=== PATIENT | male | born 1980 | race Caucasian/White ===

== ENCOUNTER 2017-04-28 06:02 | Observation (INO) ==
--- NOTE | 2017-04-28 06:25 | Emergency Department Note ---
Disposition Clinical Impression: Chest pain Qualifiers: Chest pain type: unspecified Qualified Code(s): R07.9 - Chest pain, unspecified Disposition: Admitted As Inpatient Condition: Fair Referrals: Stella Nelson MD [Primary Care Provider] - Forms: ED Satisfaction Letter Time of Disposition: 08:22 Chest Pain HPI - General Chief Complaint: ED Chest Pain Stated Complaint: CHEST PAIN Time Seen by Provider: 04/28/17 06:07 Source: patient, EMS Limitations: no limitations Vital Signs Reviewed: Yes Nursing Notes Reviewed: Yes - History of Present Illness HPI Narrative: 36-year-old male arrives by EMS for evaluation of left-sided chest pain. The patient states that he awoke from sleep at 3:00 this morning with a "tightness in my chest". He states this tightness was made worsen with deep breathing. He states that he took 3 full strength aspirin without relief. When the pain continued, he and his decided to call EMS for transport to the hospital. EMS administered a total of 3 sublingual nitroglycerin tablets and round. He states that initially, he rated his chest tightness a 7 out of 10 on a 10 point scale. After the third nitroglycerin tablet, his pain is now a 1 out of 10. He denies any associated nausea, vomiting, or diaphoresis. He denies any fevers , cough, or recent upper respiratory infections. He denies any sputum or hemoptysis although states the pain is worse with deep inspiration. His pain is not reproducible with palpation. He denies any pain or swelling of the lower legs or calves. He states this pain did radiate approximately snf down his left upper arm. He states that all day yesterday afternoon, he experienced the sensation of palpitations however did not have any chest pain or pressure. He denies any known cardiac history but states a strong familial history. Pt complaint: chest pain Onset (ago): hour(s) (Awoke from sleep at 3:00 AM) Duration: other (Improved) Pain Location: left chest Severity: moderate Severity scale (1-10): 1 Quality: tightness Pain Radiation: LUE, back Improves with: nitroglycerin Associated symptoms: Reports: palpitations (Palpitations yesterday), other ( Pain with inspiration). Denies: nausea, vomiting, diaphoresis, dyspnea, syncope Treatments prior to arrival chest pain: aspirin, nitroglycerin - Related Data Home Medications Medication Instructions Recorded Confirmed Omeprazole [PriLOSEC] 40 mg PO DAILY 12/06/16 04/28/17 metFORMIN [Glucophage] 850 mg PO BIDWM 12/06/16 04/28/17 Venlafaxine XR (24 HR) [Effexor XR] 150 mg PO DAILY 04/28/17 04/28/17 Allergies Allergy/AdvReac Type Severity Reaction Status Date / Time No Known Allergies Allergy Verified 04/28/17 06:03 All systems ED: reviewed and negative except as stated. Constitutional: Denies: fever, chills, weakness, weight change Eyes: Denies: eye pain, eye discharge, vision change ENT ED: Denies: ear pain, throat pain, dental pain, hearing loss, epistaxis, congestion, dysphagia Cardiovascular: Reports: as per HPI, chest pain, palpitations. Denies: dyspnea on exertion, edema, syncope Respiratory: Reports: as per HPI, other (Pain with inspiration). Denies: cough , dyspnea, wheezes, hemoptysis, stridor Gastrointestinal: Denies: abdominal pain, nausea, vomiting, diarrhea, constipation, hematemesis, melena, hematochezia Genitourinary: Denies: urgency, dysuria, frequency, hematuria Musculoskeletal: Denies: back pain, neck pain, arthralgia, myalgia Integumentary: Denies: rash, abrasion, lesions Neurological: Denies: headache, weakness, numbness, paresthesias, confusion, abnormal gait, vertigo Psychiatric: Denies: anxiety, depression, suicidal thoughts, homicidal thoughts , auditory hallucinations, visual hallucinations Endocrine: Denies: fatigue Hematological/Lymphatic: Denies: easy bleeding, easy bruising Allergic/Immunologic: Denies: facial swelling, urticaria Chest Pain PMH - Past Medical History Medical history: Reports: diabetes, GERD, other Psychiatric history: Reports: anxiety, depression, other - Social History Smoking Status: Former smoker Alcohol use: Reports: occasionally Drug use: Reports: none Physical Exam - General Limitations: no limitations General appearance: alert, in no apparent distress - Head Head exam: atraumatic, normocephalic, normal inspection - Eye Eye exam: Present: normal appearance, PERRL, EOMI. Absent: nystagmus - ENT ENT exam: mucous membranes moist - Neck Neck exam: Present: normal inspection, full ROM, trachea midline - Chest Chest inspection: Present: normal inspection, symmetric chest wall rise - Respiratory Respiratory exam: Present: normal lung sounds bilaterally. Absent: respiratory distress, wheezes, stridor, accessory muscle use, prolonged expiratory phase - Cardiovascular Cardiovascular exam: Present: regular rate, normal rhythm, normal heart sounds - Abdominal Exam Abdominal exam: Present: soft, Non-Tender, normal bowel sounds - Extremities Exam Extremities exam: Present: normal inspection, full ROM. Absent: tenderness, pedal edema - Neurological Exam Neurological exam: Present: alert, oriented X3 - Psychiatric Psychiatric exam: Present: normal affect, normal mood - Skin Skin exam: Present: warm, dry, intact, normal color Course Course Narrative: I discussed this patient's case with Dr. Chavez. Dr. Chavez has had a face-to -face evaluation with patient and also agrees with admission to the hospitalist service for chest pain rule out. 0820: I spoke with Dr. Putnam the hospitalist service who has accepted the patient for admission to his care for further observation and treatment/rule out. Vital Signs Temperature 98.7 F 04/28/17 06:03 Pulse Rate 59 04/28/17 06:03 Respiratory Rate 16 04/28/17 06:03 Blood Pressure 168/94 04/28/17 06:03 O2 Sat by Pulse Oximetry 99 04/28/17 06:03 Temperature 98.7 F 04/28/17 06:03 Pulse Rate 81 04/28/17 07:12 Respiratory Rate 18 04/28/17 07:12 Blood Pressure 141/92 04/28/17 07:12 O2 Sat by Pulse Oximetry 98 04/28/17 07:12 Oxygen Delivery Oxygen Delivery Room Air Chest Pain - Medical Records Medical records reviewed: Yes I reviewed the patient's medical records. - Lab Data Lab results reviewed: Yes I reviewed the patient's lab results. Lab results narrative: Laboratory Last Values WBC 5.7 K/mcL (4.3-11.1) 04/28/17 06:59 RBC 4.82 M/mcL (4.19-5.50) 04/28/17 06:59 Hgb 14.3 g/dL (12.9-16.9) 04/28/17 06:59 Hct 41.5 % (37.5-50.1) 04/28/17 06:59 MCV 86.1 fL (83.0-100.0) 04/28/17 06:59 MCH 29.7 pg (28.0-33.3) 04/28/17 06:59 MCHC 34.5 g/dL (31.6-35.5) 04/28/17 06:59 RDW 12.9 % (11.5-14.5) 04/28/17 06:59 Plt Count 227 K/mcL (140-400) 04/28/17 06:59 MPV 10.3 fL (9.4-12.4) 04/28/17 06:59 Immature Gran % 0.2 % (0-4) 04/28/17 06:59 Seg Neutrophils % 59.4 % 04/28/17 06:59 Lymphocytes % 28.3 % 04/28/17 06:59 Monocytes % 8.0 % 04/28/17 06:59 Eosinophils % 3.4 % 04/28/17 06:59 Basophils % 0.7 % 04/28/17 06:59 Neutrophils # 3.4 K/mcL (1.6-8.9) 04/28/17 06:59 Lymphocytes # 1.6 K/mcL (0.6-4.6) 04/28/17 06:59 Monocytes # 0.5 K/mcL (0.0-1.3) 04/28/17 06:59 Eosinophils # 0.2 K/mcL (0.0-0.6) 04/28/17 06:59 Basophils # 0.0 K/mcL (0.0-0.2) 04/28/17 06:59 Immature Plt Fraction 3.5 % (1.1-6.1) 04/28/17 06:59 PT 10.9 Seconds (9.4-12.1) 04/28/17 06:59 INR 1.0 04/28/17 06:59 APTT 27.5 Seconds (26.0-36.0) 04/28/17 06:59 D-Dimer 316 ng/mLFEU (0-500) 04/28/17 06:59 Sodium 139 mEq/L (136-145) 04/28/17 06:59 Potassium 4.0 mEq/L (3.5-4.5) 04/28/17 06:59 Chloride 104 mEq/L (98-109) 04/28/17 06:59 Carbon Dioxide 26 mEq/L (19-29) 04/28/17 06:59 BUN 14 mg/dL (8-26) 04/28/17 06:59 Creatinine 0.82 mg/dL (0.72-1.25) 04/28/17 06:59 Est GFR ( Amer) > 60 (> 60) 04/28/17 06:59 Est GFR (Non-Af Amer) > 60 (> 60) 04/28/17 06:59 BUN/Creatinine Ratio 17 (6-26) 04/28/17 06:59 Glucose 166 mg/dL (70-99) H 04/28/17 06:59 Calculated Osmolality 292 (280-300) 04/28/17 06:59 Calcium 8.8 mg/dL (8.6-10.8) 04/28/17 06:59 Magnesium 1.6 mg/dL (1.6-2.6) 04/28/17 06:59 Troponin I 0.00 ng/mL (0-0.03) 04/28/17 06:59 B-Natriuretic Peptide 36 pg/mL (0-100) 04/28/17 06:59 Urine Color Yellow (Yellow) 04/28/17 06:46 Urine Clarity Clear (Clear) 04/28/17 06:46 Urine pH 6.0 pH Units (5.0-8.0) 04/28/17 06:46 Ur Specific [place] 1.020 (1.010-1.025) 04/28/17 06:46 Urine Protein Negative mg/dL (Neg-Trace) 04/28/17 06:46 Urine Glucose (UA) Normal mg/dL (Normal) 04/28/17 06:46 Urine Ketones Negative mg/dL (Negative) 04/28/17 06:46 Urine Blood Negative (Negative) 04/28/17 06:46 Urine Nitrite Negative (Negative) 04/28/17 06:46 Urine Bilirubin Negative (Negative) 04/28/17 06:46 Urine Urobilinogen Normal mg/dL (Normal) 04/28/17 06:46 Ur Leukocyte Esterase Negative (Negative) 04/28/17 06:46 Ur Culture Indicated? NO (NO) 04/28/17 06:46 Result diagrams: 04/28/17 06:59 04/28/17 06:59 Lab Results 04/28/17 04/28/17 04/28/17 Range/Units 06:46 06:59 06:59 WBC (4.3-11.1) K/mcL RBC (4.19-5.50) M/mcL Hgb (12.9-16.9) g/dL Hct (37.5-50.1) % MCV (83.0-100.0) fL MCH (28.0-33.3) pg MCHC (31.6-35.5) g/dL RDW (11.5-14.5) % Plt Count (140-400) K/mcL MPV (9.4-12.4) fL Immature Gran % (0-4) % Seg Neutrophils % % Lymphocytes % % Monocytes % % Eosinophils % % Basophils % % Neutrophils # (1.6-8.9) K/mcL Lymphocytes # (0.6-4.6) K/mcL Monocytes # (0.0-1.3) K/mcL Eosinophils # (0.0-0.6) K/mcL Basophils # (0.0-0.2) K/mcL Immature Plt Fraction (1.1-6.1) % PT 10.9 (9.4-12.1) Seconds INR 1.0 APTT 27.5 (26.0-36.0) Seconds D-Dimer 316 (0-500) ng/mLFEU Sodium (136-145) mEq/L Potassium (3.5-4.5) mEq/L Chloride (98-109) mEq/L Carbon Dioxide (19-29) mEq/L BUN (8-26) mg/dL Creatinine (0.72-1.25) mg/dL Est GFR ( Amer) (> 60) Est GFR (Non-Af Amer) (> 60) BUN/Creatinine Ratio (6-26) Glucose (70-99) mg/dL Calculated Osmolality (280-300) Calcium (8.6-10.8) mg/dL Magnesium (1.6-2.6) mg/dL Troponin I (0-0.03) ng/mL B-Natriuretic Peptide 36 (0-100) pg/mL Urine Color Yellow (Yellow) Urine Clarity Clear (Clear) Urine pH 6.0 (5.0-8.0) pH Units Ur Specific [place] 1.020 (1.010-1.025) Urine Protein Negative (Neg-Trace) mg/dL Urine Glucose (UA) Normal (Normal) mg/dL Urine Ketones Negative (Negative) mg/dL Urine Blood Negative (Negative) Urine Nitrite Negative (Negative) Urine Bilirubin Negative (Negative) Urine Urobilinogen Normal (Normal) mg/dL Ur Leukocyte Esterase Negative (Negative) Ur Culture Indicated? NO (NO) 04/28/17 04/28/17 04/28/17 Range/Units 06:59 06:59 06:59 WBC 5.7 (4.3-11.1) K/mcL RBC 4.82 (4.19-5.50) M/mcL Hgb 14.3 (12.9-16.9) g/dL Hct 41.5 (37.5-50.1) % MCV 86.1 (83.0-100.0) fL MCH 29.7 (28.0-33.3) pg MCHC 34.5 (31.6-35.5) g/dL RDW 12.9 (11.5-14.5) % Plt Count 227 (140-400) K/mcL MPV 10.3 (9.4-12.4) fL Immature Gran % 0.2 (0-4) % Seg Neutrophils % 59.4 % Lymphocytes % 28.3 % Monocytes % 8.0 % Eosinophils % 3.4 % Basophils % 0.7 % Neutrophils # 3.4 (1.6-8.9) K/mcL Lymphocytes # 1.6 (0.6-4.6) K/mcL Monocytes # 0.5 (0.0-1.3) K/mcL Eosinophils # 0.2 (0.0-0.6) K/mcL Basophils # 0.0 (0.0-0.2) K/mcL Immature Plt Fraction 3.5 (1.1-6.1) % PT (9.4-12.1) Seconds INR APTT (26.0-36.0) Seconds D-Dimer (0-500) ng/mLFEU Sodium 139 (136-145) mEq/L Potassium 4.0 (3.5-4.5) mEq/L Chloride 104 (98-109) mEq/L Carbon Dioxide 26 (19-29) mEq/L BUN 14 (8-26) mg/dL Creatinine 0.82 (0.72-1.25) mg/dL Est GFR ( Amer) > 60 (> 60) Est GFR (Non-Af Amer) > 60 (> 60) BUN/Creatinine Ratio 17 (6-26) Glucose 166 H (70-99) mg/dL Calculated Osmolality 292 (280-300) Calcium 8.8 (8.6-10.8) mg/dL Magnesium 1.6 (1.6-2.6) mg/dL Troponin I 0.00 (0-0.03) ng/mL B-Natriuretic Peptide (0-100) pg/mL Urine Color (Yellow) Urine Clarity (Clear) Urine pH (5.0-8.0) pH Units Ur Specific [place] (1.010-1.025) Urine Protein (Neg-Trace) mg/dL Urine Glucose (UA) (Normal) mg/dL Urine Ketones (Negative) mg/dL Urine Blood (Negative) Urine Nitrite (Negative) Urine Bilirubin (Negative) Urine Urobilinogen (Normal) mg/dL Ur Leukocyte Esterase (Negative) Ur Culture Indicated? (NO) - Radiology Data Radiology results reviewed: Yes I reviewed the patient's radiology results. Chest X-Ray 04/28/17 06:20 IMPRESSION: No acute findings. D/ / Kristie Jackson MD / Kristie Jackson MD Interpreting Provider: Kristie Jackson MD - EKG Data EKG attestation: Yes I reviewed and interpreted this EKG. EKG results narrative: EKG reviewed by Dr. Stubbs as well. EKG shows a sinus rhythm with occasional ventricular premature complexes at a rate of 79 beats per minute. WA interval 162, QRS duration 93, QT/QTc interval 371/406. No STEMI. No significant changes when compared to an EKG dated 02/24/13. Heart Score - Score History: Moderately Suspicious EKG: Non Specific repolarisation Disturbance Age: Less than 45 Risk Factors: 1-2 risk factors Troponin: Less than normal limit HEART Score Total: 3 Attestation Statement - Attestation Attestation: Lizbeth, Kalen Chavez DO have provided [id number] time during the care of this patient. Detailed review the presentation, symptoms, medical history were discussed and reviewed with the mid-level provider Carlito Benavides PA-C/[place]. Medical intervention labs and imaging studies were reviewed in detail. See full documentation of physical exam and course of care in the mid-level provider's note. I agree with the determined course of care, medical intervention and disposition put forth by the mid-level provider. See below documentation for changes or alterations in documentation. 36-year-old male presents to emergency room with approximately 4 hours worth of substernal pressure and chest tightness. He has no specific cardiac history in the past. Patient has concerning family history with the mother and father with early cardiac disease as well as myocardial infarction. Patient does have diabetes and hypertension and is morbidly obese. Initial presentation about 3 AM patient had chest heaviness and tightness of his definitive findings of her had before. He does have a history of anxiety. Patient said that upon waking he had the chest pressure and tightness on the left side of his chest. He felt like he was difficult to take deep breaths. Patient took immediately for baby aspirin. He called the squad because symptoms did not get better. Patient then was provided with 3 tablets of nitroglycerin in transit. Initial tablet helped with some of the symptoms and then each tablet progressively after took away the symptoms. On arrival here to the emergency room patient does not have any anginal symptoms at this point. He does have concern for anginal colon. Initial EKG and labs are unremarkable except for inverted T-wave in lead 3 with no specific signs of ST segment elevation. Morphology is otherwise unremarkable. Patient is resting comfortably in the bed at this time. Because of the family history as well as the patient's risk factors she will be admitted for serial troponins a possible cardiac evaluation. Otherwise patient is resting comfortably in the bed of this time. See detailed documentation of physical exam, medical evaluation medical intervention, medical decision-making and disposition as a physician's note
[2017-04-28 06:55] LABS: Bilirubin,Urine Negative (Negative); Blood,Urine Negative (Negative); Clarity,Urine Clear (Clear); Color,Urine Yellow (Yellow); Glucose,Urine (UA) Normal (Normal); Ketones,Urine Negative (Negative); Leukocyte Esterase,Urine Negative (Negative); Nitrite,Urine Negative (Negative); Protein,Urine Negative (Neg-Trace); Urobilinogen,Urine Normal (Normal)
[2017-04-28 07:08] LABS: Basophils % 0.7 %; Eosinophils # 0.2 K/mcL (0.0-0.6); Eosinophils % 3.4 %; Hematocrit 41.5 % (37.5-50.1); Hemoglobin 14.3 g/dL (12.9-16.9); Immature Granulocytes % 0.2 % (0-4); Immature Platelets 3.5 % (1.1-6.1); Lymphocytes # 1.6 K/mcL (0.6-4.6); Lymphocytes % 28.3 %; Mean Corpuscular HGB Conc 34.5 g/dL (31.6-35.5); Mean Corpuscular Hemoglobin 29.7 pg (28.0-33.3); Mean Corpuscular Volume 86.1 fL (83.0-100.0); Mean Platelet Volume 10.3 fL (9.4-12.4); Monocytes # 0.5 K/mcL (0.0-1.3); Neutrophils # 3.4 K/mcL (1.6-8.9); Platelet Count 227 K/mcL (140-400); Red Blood Count 4.82 M/mcL (4.19-5.50); Red Cell Distribution Width 12.9 % (11.5-14.5); Segmented Neutrophils % 59.4 %
[2017-04-28 07:12] LABS: Prothrombin Time 10.9 Seconds (9.4-12.1)
[2017-04-28 07:15] LABS: Activated Partial Thrombo Time 27.5 Seconds (26.0-36.0)
[2017-04-28 07:19] LABS: BUN/Creatinine Ratio 17 (6-26); Blood Urea Nitrogen 14 mg/dL (8-26); Calcium 8.8 mg/dL (8.6-10.8); Carbon Dioxide 26 mEq/L (19-29); Chloride 104 mEq/L (98-109); Glucose 166 mg/dL (70-99); Magnesium 1.6 mg/dL (1.6-2.6); Osmolality,Calculated 292 (280-300); Sodium 139 mEq/L (136-145); eGFR For African Americans > 60 (> 60); eGFR For Non-African Americans > 60 (> 60)
[2017-04-28] MEDS ORDERED: Naloxone 0.4 MG/ML INJ IVP PRN (08:46)
[2017-04-28] MEDS ORDERED: *HR* Morphine 2 MG/ML SYRINGE IVP PRN (09:02)
[2017-04-28] MEDS ORDERED: Nitroglycerin 0.4 MG TAB.SUBL SL PRN (09:10)
[2017-04-28] MEDS ORDERED: D5% in Water 1,000 ML IVC PRN (09:11)
[2017-04-28] MEDS ORDERED: *HR* Dextrose 50 % in Water (Syg) 50 ML SYRINGE IVP PRN (09:11)
[2017-04-28] MEDS ORDERED: Dextrose Gel 15 GM PO PRN ×2 (09:11)
--- NOTE | 2017-04-28 09:20 | Internal Med History&Physical ---
Date of Encounter: 04/28/17 Time of Encounter: 09:14 Assessment and Plan (1) Chest pain Current visit: Yes Status: Acute Chest pain: 36/male Admitted with anginal pain: Precordial region, radiating to the left arm, relieved by nitroglycerin. Background history of diabetes. Borderline obesity. At the time of examination patient is chest pain-free Plan: -Admitted as an observation. Chest pain rule out ACS protocol. -Aspirin 81/Lipitor 40/metoprolol on hold for possible stress test. -Echocardiogram. -Pharmacological stress test. -If stress test is positive then consult cardiology for further evaluation. -The chest pain continues then consider nitroglycerin -I have seen this patient in the emergency room at bed 7 and patient's family including his parents and son at the bedside. - I have discussed the plan with the patient's family member and at the end of the conversation they do not have any questions, concerns, update or recommendations. Qualifiers: Chest pain type: unspecified Qualified Code(s): R07.9 - Chest pain, unspecified (2) Diabetes mellitus Current visit: Yes Status: Acute Patient is known to have her type 2 diabetes mellitus. Patient is presently on metformin. Metformin is on hold. Patient will be placed on subcutaneous insulin as per protocol. Qualifiers: Diabetes mellitus type: type 2 Diabetes mellitus complication status: with unspecified complications Diabetes mellitus [employer] insulin use: unspecified [employer] insulin use status Qualified Code(s): E11.8 - Type 2 diabetes mellitus with unspecified complications (3) DVT prophylaxis Current visit: Yes Status: Acute SCD Medical decision making: This patient has a moderate was risk of worsening in spite of being on appropriate medication due to the underlying comorbid conditions. Internal Medicine - H&P: HPI Chief complaint: Chest pain Admitted From: Emergency Dept Plans for Post Hospital Care: Home History of present illness: PCP: Dr. Liana Johnson Background medical history: Type 2 diabetes on metformin, depression, borderline obesity. History of present illness: Patient was complaining of chest pain since last night around 10 PM. The patient was left precordial region, nonradiating, localized, rest and with activity, associated with palpitation and flutter-like sensation, radiating to the left arm, relieved by rest and nitroglycerin. Patient was woke up with the chest pain and the pain was ongoing for more than 30 minutes, this is the reason why he came to the hospital. Patient denies abdominal pain, nausea, vomiting, dizziness or diarrhea. Workup in the emergency room: Patient was evaluated in the emergency room. Basic labs were drawn. Chest x-ray was done which was negative for any acute changes. EKG was done which showed T-wave inversion in lead 3. Troponins were negative. Reason for admission: Chest pain rule out ACS. Heart score: 4 Family history: Significant for coronary artery disease and early MT on both side of the parents. Past Med Surg Social Fam HX - Past Medical History Medical history: diabetes, GERD, other Psychiatric history: anxiety, depression, other - Social History Smoking Status: Former smoker Smokeless Tobacco Status: No Alcohol use: occasionally Drug use: none Internal Medicine - H&P: Meds Omeprazole [PriLOSEC] 40 mg PO DAILY 12/06/16 [History] metFORMIN [Glucophage] 850 mg PO BIDWM 12/06/16 [History] Venlafaxine XR (24 HR) [Effexor XR] 150 mg PO DAILY 04/28/17 [History] 3 Allergy/AdvReac Type Severity Reaction Status Date / Time No Known Allergies Allergy Verified 04/28/17 06:03 All Systems PM: A 10-system review of systems was performed and is negative for pertinent findings except as documented above in the HPI. - Constitutional Constitutional: no chills, no fever(s), no night sweats - EENT Eyes: no change in vision, no discharge, no pain, no photophobia Ears: no ear discharge, no ear pain, no tinnitus Nose, mouth and throat: no dysphagia, no nasal discharge, no neck pain, no sore throat - Cardiovascular Cardiovascular ROS IM: chest pain, diaphoresis, dyspnea on exertion, palpitations, no dyspnea, no lightheadedness, no syncope - Respiratory Respiratory: no cough, no dyspnea, no wheezing, no excessive phlegm production - Gastrointestinal Gastrointestinal: no abdominal pain, no diarrhea, no hematemesis, no hematochezia, no melena, no nausea, no vomiting - Musculoskeletal Musculoskeletal ROS IM: no numbness, no tingling - Integumentary Integumentary IM: no rash, no unusual bruising - Neurological Neurological ROS: no confusion, no convulsions, no focal weakness, no numbness, no tingling, no tremor(s) - Hematologic/Lymphatic Hematologic/Lymphatic: no easy bruising - Constitutional Vitals: Temp Pulse Resp BP Pulse Ox 98.7 F 81 18 141/92 98 04/28/17 06:03 04/28/17 07:12 04/28/17 07:12 04/28/17 07:12 04/28/17 07:12 General appearance: Present: pleasant, no acute distress, answers questions appropriately - Head Head exam: Present: atraumatic, normocephalic - Eye Eye exam: Present: PERRL, conjuntiva pink, sclera anicteric Pupils: Present: PERRL - Neck Neck exam general surgery: Present: supple, trachea midline. Absent: lymphadenopathy - Respiratory Respiratory exam: Present: CTAB. Absent: accessory muscle use, rales, rhonchi, wheezes - Cardiovascular Cardiovascular exam: Present: RRR, +S1, +S2. Absent: diastolic murmur, gallop, rubs, systolic murmur - GI/Abdominal GI/Abdominal exam: Present: normal bowel sounds, soft, no peritoneal signs. Absent: distended, tenderness - Extremities Exam Extremities exam: Present: warm, radial pulses palpable and symmetrical. Absent : calf tenderness, cyanotic, pedal edema - Neurological Exam Neurological exam: Present: CN II-XII intact, oriented X3, no focal deficits. Absent: pronater drift, facial droop, speech deficit - Skin Skin exam: Present: dry, intact Internal Med - H&P Results - Labs CBC & Chem 7: 04/28/17 06:59 04/28/17 06:59
[2017-04-28 09:41] LABS: Amphetamine Screen,Urine Negative ng/mL (Cutoff=1000); Barbiturate Screen,Urine Negative ng/mL (Cutoff=200); Benzodiazepines Screen,Urine Negative ng/mL (Cutoff=200); Cannabinoid Screen,Urine Negative ng/mL (Cutoff = 50); Cocaine Screen,Urine Negative ng/mL (Cutoff= 300); Opiate Screen,Urine Negative ng/mL (Cutoff=300); Phencyclidine Screen,Urine Negative ng/mL (Cutoff=25)
[2017-04-28 09:50] LABS: Hemoglobin A1C 6.7 %
[2017-04-28] MEDS: Insulin LISPRO 300 UNITS/3 ML VIAL SQ SCH ×2 (12:30→16:48)
[2017-04-28] MEDS: Aspirin Enteric Coated 81 MG Tablet PO SCH (14:00)
[2017-04-29 01:08] LABS: Basophils % 0.6 %; Eosinophils # 0.2 K/mcL (0.0-0.6); Eosinophils % 3.4 %; Hematocrit 41.4 % (37.5-50.1); Hemoglobin 14.3 g/dL (12.9-16.9); Immature Granulocytes % 0.4 % (0-4); Lymphocytes # 2.4 K/mcL (0.6-4.6); Lymphocytes % 36.2 %; Mean Corpuscular HGB Conc 34.5 g/dL (31.6-35.5); Mean Corpuscular Hemoglobin 29.7 pg (28.0-33.3); Mean Corpuscular Volume 85.9 fL (83.0-100.0); Mean Platelet Volume 10.7 fL (9.4-12.4); Monocytes # 0.5 K/mcL (0.0-1.3); Monocytes % 7.9 %; Neutrophils # 3.5 K/mcL (1.6-8.9); Platelet Count 241 K/mcL (140-400); Red Blood Count 4.82 M/mcL (4.19-5.50); Red Cell Distribution Width 12.8 % (11.5-14.5); Segmented Neutrophils % 51.5 %
[2017-04-29 01:17] LABS: Prothrombin Time 10.6 Seconds (9.4-12.1)
[2017-04-29 01:29] LABS: Alanine Aminotransferase 61 Units/L (0-55); Albumin 3.4 g/dL (3.5-5.0); Albumin/Globulin Ratio 1.1 (1.1-2.2); Alkaline Phosphatase 49 Units/L (38-126); Aspartate Amino Transferase 30 Units/L (5-34); BUN/Creatinine Ratio 17 (6-26); Bilirubin,Total 0.2 mg/dL (0.2-1.2); Blood Urea Nitrogen 15 mg/dL (8-26); Calcium 8.7 mg/dL (8.6-10.8); Carbon Dioxide 27 mEq/L (19-29); Chloride 103 mEq/L (98-109); Chol/HDL Ratio 5.5 (0-4.9); Cholesterol 171 mg/dL (< 200); Globulin 3.2 g/dL (2.4-3.5); Glucose 202 mg/dL (70-99); HDL Cholesterol 31 mg/dL (40-59); LDL Cholesterol,Calculated 73 mg/dL (0-99); Magnesium 1.9 mg/dL (1.6-2.6); Osmolality,Calculated 291 (280-300); Phosphorous 3.1 mg/dL (2.3-4.7); Potassium 3.5 mEq/L (3.5-4.5); Sodium 137 mEq/L (136-145); Total Protein 6.6 g/dL (6.0-8.3); Triglycerides 336 mg/dL (< 150); eGFR For African Americans > 60 (> 60); eGFR For Non-African Americans > 60 (> 60)
[2017-04-29] MEDS ORDERED: Regadenoson 0.4 MG/5 ML SYRINGE IVP ONE (06:09)
[2017-04-29] MEDS ORDERED: Venlafaxine XR (24 HR) 150 MG CAP.ER.24H PO SCH (09:00)
[2017-04-29] MEDS ORDERED: Pantoprazole 40 MG VIAL IVP SCH (09:00)
[2017-04-29] MEDS: Aspirin Enteric Coated 81 MG Tablet PO SCH (09:55)
[2017-04-29] MEDS: Insulin LISPRO 300 UNITS/3 ML VIAL SQ SCH ×3 (09:56→17:21)
[2017-04-29] MEDS ORDERED: Acetaminophen 325 MG TABLET PO ONE (10:11)
[2017-04-29 15:52] VITALS: BP 120/68
--- NOTE | 2017-04-29 16:24 | Electrocardiograph Report ---
[address] [address] Test Date: 2017-04-28 Pat Name: Leo Villalba Department: 103 Room: 3B46 Gender: M Wet Roaster: : 1980 Requested By: Carlito Benavides Order Number: [id number] Reading MD: Manjit Rudd MD Measurements Intervals [place] Rate: 79 P: 16 LA: 162 QRS: -10 QRSD: 93 T: -7 QT: 371 QTc: 406 Interpretive Statements SINUS RHYTHM WITH OCCASIONAL VENTRICULAR PREMATURE COMPLEXES MINIMAL VOLTAGE CRITERIA FOR LVH, CONSIDER NORMAL VARIANT Electronically Signed On 04-29-2017 16:22:33 EST by Manjit Rudd MD
--- NOTE | 2017-04-29 17:09 | Discharge Summary ---
Date of Encounter: 04/29/17 Time of Encounter: 10:15 - Discharge Diagnosis (1) Chest pain Priority: Primary Status: Acute Comments: Pt reports to the ED with left chest pain since night prior to admission at about 2200. He was left chest, nonradiating, localized. He reported the dictation is fluttering. Pain was relieved by nitroglycerin in the emergency department. He has not had anything since. Patient states he came to the emergency department due to the fact that the pain lasted longer than 30 minutes. He states that he has a lot of anxiety recently and feels that the chest pain is related to anxiety. It is not reproducible with palpation, movement, or deep inspiration. Stress test was negative with a gated EF of > 70%, echo with LVEF 65%, normal LV DD, no significant valvular dysfunction. EKG NSR with occasional PVCs, rate 79, ND 162, QRS 93, QTc 406. Pain most likely is related to anxiety, no indication that it is cardiac in nature. We discussed lifestyle modifications related to diet and cholesterol control, hypertension control. Pt verbalized understanding. Qualifiers: Chest pain type: unspecified Qualified Code(s): R07.9 - Chest pain, unspecified (2) Hyperlipidemia Priority: Secondary Status: Acute Comments: Pt with new diagnosis of hyperlipidemia, will continue statin that has been started in the ED. Triglycerides 336, suggested fish oil. Qualifiers: Hyperlipidemia type: unspecified Qualified Code(s): E78.5 - Hyperlipidemia , unspecified (3) Diabetes mellitus Priority: Secondary Status: Acute Comments: Hbg 6.7. Continue medications, diet, and accucheck routine at home. 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 (5) Obesity (BMI 30-39.9) Priority: Secondary Status: Chronic Comments: Chronic. Discussed lifestyle and diet modifications. - Discharge Medications Prescriptions: Atorvastatin Calcium [Lipitor] 20 mg PO DAILY #30 tablet [place]-3/Dha/Epa/Fish Oil [[place]-3 EC Softgel] 1 each PO DAILY #30 capsule.dr Rivero Medications: Omeprazole [PriLOSEC] 40 mg PO DAILY 12/06/16 [History] metFORMIN [Glucophage] 850 mg PO BIDWM 12/06/16 [History] Venlafaxine XR (24 HR) [Effexor Xr] 150 mg PO DAILY 04/28/17 [History] Aspirin Enteric Coated [Aspirin EC] 81 mg PO DAILY tablet. 04/29/17 [Rx] Atorvastatin Calcium [Lipitor] 20 mg PO DAILY #30 tablet 04/29/17 [Rx] [place]-3/Dha/Epa/Fish Oil [[place]-3 EC Softgel] 1 each PO DAILY #30 capsule. 02/05 [Rx] Allergies/Adverse Reactions: 3 Allergy/AdvReac Type Severity Reaction Status Date / Time No Known Allergies Allergy Verified 04/28/17 06:03 Procedures/tests Complete & Pending: Procedures Performed prior 72 hours Category Date Time Status NM sunny perf SPECT multi [NM] Routine Exams 04/28/17 09:09 Taken EV echocardiogram Routine Y 04/28/17 09:08 Completed SP pharm nuclear stress Routine Y 04/29/17 07:30 Completed Date of admission: 04/28/17 08:24 Primary care physician: Stella Nelson Discharging clinician: Jaye Shah Anticipated date of discharge: 04/29/17 - Patient Status Disposition: Home, Self-Care Condition: Good Functional capacity at discharge: independent ambulation Overall status at discharge: patient is back to baseline - Discharge Instructions Follow Up With: Stella Nelson MD [Primary Care Provider] - Additional Instructions: Follow up with PCP in the next 7-10 days for a follow up visit. Return to the ER as needed for any other problems or concerns or if your symptoms return or worsen. Take your medications as directed. Return to your normal activities and diet as tolerated. - Diet and Activity Activity: resume usual activities as tolerated Diet: diabetic diet, low fat, low cholesterol Interval History: Please see assessment and plan for hospital course. Hospital course: Mr. Villalba is a 36 year old male - Time Spent with Patient Total time spent providing and/or coordinating discharge services: Less than 30 minutes - Constitutional Vitals: Temp Pulse Resp BP Pulse Ox 98.3 F 96 16 120/68 98 04/29/17 15:51 04/29/17 15:51 04/29/17 15:51 04/29/17 15:51 04/29/17 15:51 General appearance: Present: pleasant, no acute distress, answers questions appropriately - Head Head exam: Present: atraumatic, normocephalic - Eye Eye exam: Present: PERRL, conjuntiva pink, sclera anicteric Pupils: Present: PERRL - Neck Neck exam general surgery: Present: supple, trachea midline. Absent: lymphadenopathy - Respiratory Respiratory exam: Present: CTAB. Absent: accessory muscle use, rales, rhonchi, wheezes - Cardiovascular Cardiovascular exam: Present: RRR, +S1, +S2. Absent: diastolic murmur, gallop, rubs, systolic murmur - GI/Abdominal GI/Abdominal exam: Present: normal bowel sounds, soft, no peritoneal signs. Absent: distended, tenderness - Extremities Exam Extremities exam: Present: warm, radial pulses palpable and symmetrical. Absent : calf tenderness, cyanotic, pedal edema - Neurological Exam Neurological exam: Present: CN II-XII intact, oriented X3, no focal deficits. Absent: pronater drift, facial droop, speech deficit - Skin Skin exam: Present: dry, intact
== END 2017-04-29 18:31 | disposition home or self-care (01) ==
LOC: EMEROO 06:02 → 3BNU 06:02
PROVIDERS: ADMIT Internal Medicine; ATTEND Registered Nurse